=== PATIENT | male | born 1995 | race Caucasian/White ===

== ENCOUNTER 2020-07-27 18:16 | Emergency (ER) | payer OTHER, SELFPAY ==
[2020-07-27 18:39] VITALS: BP 132/87; PULSE 111; RESP 20; TEMP 37; O2SAT 98; BMI 50.1
[2020-07-27] MEDS: Fluorescein Sodium STRIP 1 STRIP EYE-LEFT (19:15)
[2020-07-27] MEDS: Tetracaine HCl/PF 0.5% Oph Sol 4 ML DROPS 3 DROP EYE-LEFT (19:15)
--- NOTE | 2020-07-27 20:05 | ED_ITS ---
HPI - Eye Problem General Chief complaint: Skin/Abscess/Foreign Body Stated complaint: eye pain Time Seen by Provider: 07/27/20 19:01 Source: patient Mode of arrival: ambulatory Limitations: no limitations History of Present Illness HPI Narrative: 24 yo male here with discoloration to left eye and over eyelid x several days. No injury or trauma. No pain, vision changes, discharge. Did have an episode of vomiting this morning after some alcohol intake and noticed more discoloration and bruising post episode. Related Data Allergies Allergy/AdvReac Type Severity Reaction Status Date / Time cephalexin [CEPHALEXIN] Allergy Unknown UNKNOWN Verified 07/27/20 19:35 Review of Systems Review of Systems: Yes all other systems are reviewed and are negative Constitutional: Constitutional: Reports no additional constitutional complaints, Denies body ache(s), Denies chills, Denies fever(s), Denies headache(s) and Denies weakness Eyes: Eyes: Reports no additional eye complaints, Denies blurry vision, Denies change in vision, Denies eye discharge, Denies irritation, Denies eye pain and Denies photophobia ENT: Reports system reviewed and no additional complaints, except as docum ented, Denies dizziness, Denies headache(s), Denies nasal congestion, Denies nasal discharge and Denies neck pain Cardiovascular: Cardiovascular: Reports no additional cardiovascular complaints, Denies chest pain, Denies leg edema and Denies dyspnea Respiratory: Respiratory: Reports no additional respiratory complaints, Denies cough and Denies dyspnea Gastrointestinal: Gastrointestinal: Reports no additional gastrointestinal complaints, Denies abdominal pain, Denies diarrhea, Denies nausea and Denies vomiting Genitourinary: Genitourinary: Denies urinary incontinence Musculoskeletal: Musculoskeletal: Reports no additional musculoskeletal complaints, Denies back pain, Denies arthralgias, Denies joint swelling, Denies neck pain, Denies numbness and Denies tingling Integumentary/Breasts: Skin/Breast: Reports system reviewed and no additional complaints, except as docu and Denies rash Neurologic: Reports system reviewed and no additional complaints, except as documented, Denies Abnormal speech present, Denies dizziness, Denies headache(s), Denies numbness, Denies tingling and Denies weakness PMF Past Medical History Attestation statement: The following information was validated with the patient. Source: old records reviewed and nursing notes reviewed Medical History Asthma Social History Social History Alcohol intake: current Alcohol intake frequency: a few times a week Alcohol type: hard liquor Smoking Status: Never smoker Use of substances other than those prescribed or required for medical reasons: No Advance Directives: No Advance Directives Information Provided: No Physical Exam Vital Signs: Vital Signs: Last Vital Signs Temp 98.6 F 07/27/20 18:39 Pulse 111 H 07/27/20 18:39 Resp 20 07/27/20 18:39 BP 132/87 07/27/20 18:39 Pulse Ox 98 07/27/20 18:39 Body Mass Index 50.1 Const: General: cooperative, healthy appearing, comfortable and no acute distress Orientation/consciousness: patient oriented x3 Limitations: no limitations HENMT: Head: Yes normal to inspection Ears: hearing grossly normal bilate rally General nose exam: Normal external nose present Face and sinus: Yes normal facial exam Mouth: Normal oral and palatal mucosa present Throat: Yes posterior oropharynx normal Eyes: Other: IOP right eye 12, IOP left eye 17 General: appearance normal, both eyes and all related structures Visual Barrett: normal visual barrett by confrontation Alignment and Position: alignment normal Periorbital: periorbital findings normal Eyelids: Yes eyelid abnormality (over the left upper eyelid there is bruising and mild swelling noted) Conjunctivae: conjunctival abnormal left subconjunctival hemorrhage (laterally) Sclerae: sclerae normal Corneas: corneas normal and fluorescein used (no FB or abrasion noted) Pupils: Equal, round and reactive pupils present EOM: EOMs intact bilaterally Direct Ophthalmoscopy: normal light reflex, no photophobia, no papilledema, fundi normal bilaterally, anterior chamber normal and No photophobia Eyes/upper lids images: 1. CAPO Neck: Neck: Yes normal visual inspection Chest: Chest palpation & inspection: normal inspection of the chest Resp: Effort & Inspection: normal respiratory effort Auscultation: clear to auscultation bilaterally Cardio: Rate: regular rate Rhythm: regular rhythm Peripheral pulses: Peripheral pulses 2+ throughout GI: Inspection: Yes normal to inspection Palpation (GI): Soft to palpation and nontender Auscultation: normal bowel sounds Back/Spine/Pelvis: Thoracic/Lumbar Spine: thoracic and lumbar spine normal to inspection Skin: General skin exam: no rashes or lesions noted Neuro: General: patient oriented x3, no focal motor deficits and normal sensation to monofilament Cranial nerves: Yes Equal, round and reactive pupils present Cognition (Neuro): normal cognition Speech: No Abnormal sp eech present Gait exam (Neuro): Normal gait present Motor exam (neuro): 5/5 motor strength present throughout Extrem: General: Yes normal to inspection Course Course Course Narrative: Left CAPO and mild hematoma noted over left upper eyelidx 2-3 days however worsened after vomiting episode last night per patient. Vision at baseline per patient. NO other complaints from patient with exception of how it appears physically. Normal IOP. Normal BP. No h/o bleeding or clotting disorders. Likely from vomiting. Will have patient f/u outpatient with PCP and ophthalmology. Reviewed worrisome signs/symptoms with patient and when to return to ED. Comfortable with discharge home. Discharge Plan Discharge Clinical Impression: CAPO (subconjunctival hemorrhage) Qualifiers: Laterality: left Qualified Code(s): H11.32 - Conjunctival hemorrhage, left eye Patient Disposition: Home, Self-Care Instructions: Subconjunctival Hemorrhage (ED) Additional Instructions: cold compresses eye exam normal today with normal eye pressures Referrals: Diego Matta [Physician] - 2 days Interventions: ED Discharge Assessment Last Done: 07/27/20 19:33 Discharge Date/Time: 07/27/20 19:33
== END 2020-07-27 19:33 | disposition home or self-care (01) ==
PROVIDERS: Emergency Provider Internal Medicine
DX: H11.32 Conjunctival hemorrhage, left eye (principal); J45.909 Unspecified asthma, uncomplicated
CPT/HCPCS: 99283; 99284

== ENCOUNTER 2020-10-03 20:00 | Emergency (ER) | payer OTHER, SELFPAY ==
--- NOTE | ~2020-10-03 | XR_ITS ---
EXAMINATION: RIGHT HAND AND WRIST X-RAY CLINICAL INFORMATION: Pain COMPARISON: None TECHNIQUE: 3 views of the right hand and wrist FINDINGS: Bone alignment is normal. No fracture or dislocation is seen. Joint spaces are normal. Soft tissues are normal. XR/XR hand wrist RT IMPRESSION: Normal exam.
[2020-10-03 20:09] VITALS: BP 155/108; PULSE 99; RESP 20; TEMP 36.6; O2SAT 95; BMI 54.6
--- NOTE | 2020-10-03 21:12 | ED_ITS ---
HPI - Extremity Problem General Chief complaint: Extremity Injury, Upper Stated complaint: Wrist pain Time Seen by Provider: 10/03/20 21:07 Source: patient Mode of arrival: ambulatory Limitations: no limitations History of Present Illness HPI Narrative: Patient comes emergency room complaining of right wrist. Patient states he was trying to do handstands in the swimming pool, patient states that he sprained his wrist while trying to stand back up again. Patient has been able to move his hand, it does hurt but has full range of motion. Patient states he has not taking any medication for pain MD Complaint: extremity pain Related Data Home Medications Medication Instructions Recorded Confirmed albuterol sulfate 3 ml INHALATION Q6H PRN 10/03/20 10/03/20 albuterol sulfate [ProAir HFA] 2 puff PO Q4H PRN 10/03/20 10/03/20 Allergies Allergy/AdvReac Type Severity Reaction Status Date / Time cephalexin [CEPHALEXIN] Allergy Unknown UNKNOWN Verified 10/03/20 20:16 Review of Systems Review of Systems: Constitutional : No Weight loss, No Fever, No Chills, No Night Sweats, No Fatigue, No Malaise ENT/Mouth : No Hearing loss, No Ear Pain, No Nasal Congestion, No Sinus Pain, No Hoarseness, No sore throat, No Rhinorrhea, No Swallowing Difficulty Eyes: No Eye Pain, No Swelling, No Redness, No Foreign Body, No Discharge, No Vision Changes Cardiovascular : No Chest Pain, No SOB, No Dyspnea on Exertion, No Orthopnea, No Edema, No Palpitations Respiratory : No Cough, No Sputum, No Wheezing, No Smoke Exposure, No Dyspnea Gastrointestinal : No Nausea, No Vomiting, No Diarrhea, No Constipation, No a bdominal Pain, No Hematochezia, No Melena Genitourinary : no irregular bleeding, No Dysuria, No Urinary Frequency, No Hematuria, No Urinary Incontinence, No Urgency, No Flank Pain, No Urinary Flow Changes, No Hesitancy Musculoskeletal : Right wrist pain, No Myalgias, No Joint Swelling Skin : No Skin Lesions, No rash Neuro : No Weakness, No Numbness, No Paresthesias, No Loss of Consciousness, No Dizziness, No Headache Psych : No Anxiety/Panic, No Depression, No SI/HI/AH/VH, No Social Issues, Heme/Lymph: No Bruising, No Bleeding,No Lymphadenopathy Endocrine : No Polyuria, No Polydipsia, No Temperature Intolerance [facility] Past Medical History Medical History Asthma Obesity Social History Social History Alcohol intake: current Alcohol intake frequency: a few times a week Alcohol type: hard liquor Advance Directives: No Advance Directives Information Provided: No Physical Exam Vital Signs: Vital Signs: Last Vital Signs Temp 97.9 F 10/03/20 20:09 Pulse 99 10/03/20 20:09 Resp 20 10/03/20 20:09 BP 155/108 H 10/03/20 20:09 Pulse Ox 95 10/03/20 20:09 Body Mass Index 54.6 Appearance: Alert. Oriented X3. No acute distress. Eyes: Pupils equal, round and reactive to light. ENT: Pharynx normal. Neck: Normal inspection. Neck supple. No lymph nodes noted. No crepitus CVS: Normal heart rate and rhythm. Pulses normal. Normal S1 and S2 Respiratory: No respiratory distress. Breath sounds normal. No Wheezing. No rales Abdomen: Soft and nontender. No rigidity. No distention. good BS x4 Skin: Skin warm and dry. Normal skin color. Normal skin turgor. Extremities: No lower extremity edema. Patient is able to flex and extend all fingers, able to flex and extend wrist and elbow, mild pain to palpation over the dorsal aspect of the radial head Neuro: Oriented X 3. No motor deficit. No sensory deficit. Moving all extermities. No slurred speech. Course Course Course Narrative: I discussed the x-ray with the patient, patient has no fracture, only a wrist sprain. Patient was offered the 1st dose of pain medication, ibuprofen MDM - Extremity (Nontraumatic) Imaging Data Right wrist x-ray: Radiologist's impression: Appearance: Alert. Oriented X3. No acute distress. Eyes: Pupils equal, round and reactive to light. ENT: Pharynx normal. Neck: Normal inspection. Neck supple. No lymph nodes noted. No crepitus CVS: Normal heart rate and rhythm. Pulses normal. Normal S1 and S2 Respiratory: No respiratory distress. Breath sounds normal. No Wheezing. No rales Abdomen: Soft and nontender. No rigidity. No distention. good BS x4 Skin: Skin warm and dry. Normal skin color. Normal skin turgor. Extremities: No lower extremity edema. No lower extremity edema. No Lace rations. No Rash Neuro: Oriented X 3. No motor deficit. No sensory deficit. Moving all extermities. No slurred speech. Discharge Plan Discharge Clinical Impression: Sprain and strain of wrist Patient Disposition: Home, Self-Care Instructions: Wrist Sprain (ED) Prescriptions: No Action albuterol sulfate 2.5 mg /3 mL (0.083 %) solution for nebulization 3 ml inhalation Q6H PRN (Reason: wheezing) RF: 0 albuterol sulfate [ProAir HFA] 90 mcg/actuation HFA aerosol inhaler 2 puff PO Q4H PRN (Reason: wheezing) RF: 0
[2020-10-03] MEDS: Ibuprofen 600 MG TABLET PO (21:51)
== END 2020-10-03 21:37 | disposition home or self-care (01) ==
PROVIDERS: Emergency Provider Emergency Medicine
DX: S63.501A Unspecified sprain of right wrist, initial encounter (principal); S66.911A Strain of unspecified muscle, fascia and tendon at wrist and hand level, right hand, initial encounter; X50.1XXA Overexertion from prolonged static or awkward postures, initial encounter; Y93.11 Activity, swimming; Y92.016 Swimming-pool in single-family (private) house or garden as the place of occurrence of the external cause; Y99.8 Other external cause status
CPT/HCPCS: 73110; 73130; 99283; 99284

== ENCOUNTER 2021-06-17 13:23 | Emergency (ER) | payer OTHER, SELFPAY ==
[2021-06-17 13:40] VITALS: BP 162/102; PULSE 100; RESP 19; TEMP 36.6; O2SAT 99; BMI 53.1
[2021-06-17] MEDS: Lidocaine HCl 1 % MPF 5 ML VIAL SUBCUT ×2 (15:23)
--- NOTE | 2021-06-17 16:44 | ED.EAR ---
HPI - Ear Problem General Chief complaint: Ear Problems Stated complaint: EAR LOBE ISSUE Time Seen by Provider: 06/17/21 15:07 History of Present Illness HPI Narrative: Complains of right ear ear ring stuck Related Data Home Medications Medication Instructions Recorded Confirmed albuterol sulfate 3 ml INHALATION Q6H PRN 10/03/20 10/03/20 albuterol sulfate 90 mcg/actuation 2 puff PO Q4H PRN 10/03/20 10/03/20 aerosol inhaler (ProAir HFA) Allergies Allergy/AdvReac Type Severity Reaction Status Date / Time cephalexin [CEPHALEXIN] Allergy Unknown UNKNOWN Verified 10/03/20 20:16 Review of Systems Review of Systems: Positive for ring stuck and right earlobe Negatives are no fever no chills no loss of hearing no rash no other complaint Yes all other systems are reviewed and are negative [facility] Past Medical History Source: nursing notes reviewed Medical History Asthma Obesity Social History Social History Alcohol intake: current Alcohol intake frequency: a few times a week Alcohol type: hard liquor Advance Directives: No Advance Directives Information Provided: Yes Physical Exam Vital Signs: Vital Signs: Last Vital Signs Temp 98 F 06/17/21 13:40 Pulse 100 06/17/21 13:40 Resp 19 06/17/21 13:40 BP 162/102 H 06/17/21 13:40 Pulse Ox 99 06/17/21 13:40 BMI result Body Mass Index 53.1 General appearance is no acute distress The head is normocephalic atraumatic The ear exam the right ear lobe headache hearing that was stuck in the ear lobe Neck is supple Respiratory no distress Extremities full range of motion x4 Course Course Course Narrative: The right ear lobe was cleansed with Betadine It was numbed with 4 cc of 1% lidocaine Three small incisions were made to create a flap and the ear ring was eventually pushed through and removed The incisions were closed with 3 x 5.0 Vicryl repeat sutures that will not need to be removed Discharge Plan Discharge Clinical Impression: Foreign body (FB) in soft tissue Patient Disposition: Home, Self-Care Additional Instructions: The hearing was removed and I put some absorbable stitches, 3, in back of your here patient fall out on their own Return any time for redness swelling any sign of infection Prescriptions: No Action albuterol sulfate 2.5 mg /3 mL (0.083 %) solution for nebulization 3 ml inhalation Q6H PRN (Reason: wheezing) 0RF albuterol sulfate [ProAir HFA] 90 mcg/actuation HFA aerosol inhaler 2 puff PO Q4H PRN (Reason: wheezing) 0RF Interventions: ED Discharge Assessment Last Done: 06/17/21 17:07 Discharge Date/Time: 06/17/21 17:08
== END 2021-06-17 17:08 | disposition home or self-care (01) ==
PROVIDERS: Emergency Provider Emergency Medicine
DX: M79.5 Residual foreign body in soft tissue (principal)
CPT/HCPCS: 10120; 99283; 99284

== ENCOUNTER 2021-08-02 01:51 | Emergency (ER) | payer OTHER, SELFPAY ==
[2021-08-02 01:57] VITALS: BP 180/111; PULSE 112; RESP 20; TEMP 36.8; O2SAT 96; BMI 53.1
--- NOTE | 2021-08-02 02:53 | ED.EAR ---
HPI - Ear Problem General Chief complaint: Ear Problems Stated complaint: earring left in R ear after removal? Time Seen by Provider: 08/02/21 02:24 Source: patient Mode of arrival: ambulatory Limitations: no limitations History of Present Illness HPI Narrative: 25-year-old male who presents emergency department for evaluation of imbedded earring back in his right earlobe. States that 1 month ago he had an hearing which was imbedded and came to the emergency department have removed. He states that initially the provider started in the back of the ear but could not find the hearing and was able to pull the hearing out from front. The patient states that he has had no difficulty with his ear lobe. He states that today however he felt his earlobe and he felt something hard in the ear low. His mother looked at the back of his ear and noted a gold piece of metal and the patient was concerned that the earring back was still imbedded in his ear low therefore came to emergency department for evaluation. He denied any pain, swelling or drainage of pus from his ear lobe. Related Data Home Medications Medication Instructions Recorded Confirmed albuterol sulfate 3 ml INHALATION Q6H PRN 10/03/20 10/03/20 albuterol sulfate 90 mcg/actuation 2 puff PO Q4H PRN 10/03/20 10/03/20 aerosol inhaler (ProAir HFA) Allergies Allergy/AdvReac Type Severity Reaction Status Date / Time cephalexin [CEPHALEXIN] Allergy Unknown UNKNOWN Verified 08/02/21 02:00 Review of Systems Review of Systems: Yes all other systems are reviewed and are negative [facility] Past Medical History Medical History Asthma Obesity Social History Social History Alcohol intake: current Alcohol intake frequency: a few times a week Alcohol type: hard liquor Advance Directives: No Physical Exam Vital Signs: Vital Signs: Last Vital Signs Temp 98.2 F 08/02/21 01:57 Pulse 112 H 08/02/21 01:57 Resp 20 08/02/21 01:57 BP 180/111 H 08/02/21 01:57 Pulse Ox 96 08/02/21 01:57 BMI result Body Mass Index 53.1 Const: Other: Awake, alert, male patient, very pleasant and cooperative, does not appear to be in any distress HEENT: Other: The patient has no tenderness, swelling or erythema of the right ear lobe, and looking at the posterior aspect a very small gold metal foreign body can be visualized. Procedures Procedure Narrative Procedure Narrative: Right ear lobe foreign body (earring backing) removal: Patient gave me informed verbal consent to proceed. The patient's right earlobe was prepped with Betadine and then the posterior aspect was anesthetized with 1% lidocaine. Using a 11. Blade scalpel an incision was made over the area the metal foreign body. Using hemostats was able to grasp the foreign body and remove it. The foreign body is a very small urine backing which appears to be intact. The patient tolerated the procedure well. Discharge Plan Discharge Clinical Impression: Foreign body (FB) in soft tissue Patient Disposition: Home, Self-Care Instructions: Soft Tissue Foreign Body (ED) Additional Instructions: I was able to remove the earring backing from the back of your ear lobe. At this time, there does not appear to be any infection. Watch for signs of infection which would include increased swelling, increased redness, increased warmth, drainage of pus, red streaks going away from the back of your your. Follow-up with your doctor in 2 days. Please return to the emergency department if your symptoms get worse or if you develop any symptoms that are concerning to you. Prescriptions: No Action albuterol sulfate 2.5 mg /3 mL (0.083 %) solution for nebulization 3 ml inhalation Q6H PRN (Reason: wheezing) 0RF albuterol sulfate [ProAir HFA] 90 mcg/actuation HFA aerosol inhaler 2 puff PO Q4H PRN (Reason: wheezing) 0RF
[2021-08-02] MEDS: Lidocaine HCl 1 % MPF 5 ML VIAL INFILTRATI ×2 (02:56)
== END 2021-08-02 03:07 | disposition home or self-care (01) ==
PROVIDERS: Emergency Provider Emergency Medicine Emergency Medical Services
DX: T16.1XXA Foreign body in right ear, initial encounter (principal); H92.01 Otalgia, right ear; X58.XXXA Exposure to other specified factors, initial encounter; Y93.9 Activity, unspecified; Y92.9 Unspecified place or not applicable; Y99.9 Unspecified external cause status; Z79.899 Other long term (current) drug therapy
CPT/HCPCS: 10120; 99284

== ENCOUNTER 2021-09-18 20:57 | Emergency (ER) | payer OTHER, SELFPAY ==
[2021-09-18 22:28] VITALS: BP 178/132; PULSE 113; RESP 22; TEMP 37.8; O2SAT 96; BMI 56.9
[2021-09-18] MEDS: Ibuprofen 600 MG TABLET PO (22:41)
[2021-09-18 23:09] LABS: COVID-19 Test Positive (Negative); IDNOW Serial# 16C4AD1C
[2021-09-18 23:10] LABS: Influenza A Negative (Negative); Influenza B2 Negative (Negative)
[2021-09-19 00:16] VITALS: BP 163/94; PULSE 101; RESP 16
--- NOTE | 2021-09-19 01:12 | ED_ITS ---
HPI - URI/Sore Throat General Chief Complaint: Upper Respiratory Symptoms Stated Complaint: flu like Time Seen by Provider: 09/18/21 23:49 Source: patient Mode of arrival: ambulatory Limitations: no limitations History of Present Illness HPI Narrative: Patient obese with history of asthma having cold symptoms for last 3 days low- grade temperature 99.3 degrees at home feels slight short of breath mostly dry cough no chest pain Related Data Home Medications Medication Instructions Recorded Confirmed albuterol sulfate 3 ml INHALATION Q6H PRN 10/03/20 10/03/20 albuterol sulfate 90 mcg/actuation 2 puff PO Q4H PRN 10/03/20 10/03/20 aerosol inhaler (ProAir HFA) Previous Rx's Medication Instructions Recorded albuterol sulfate 90 mcg/actuation 2 puff INHALATION Q4-6H PRN #8.5 g 09/19/21 aerosol inhaler (ProAir HFA) benzonatate 200 mg capsule 200 mg PO TID PRN #30 cap 09/19/21 dexamethasone 6 mg tablet 6 mg PO DAILY #6 tab 09/19/21 (Decadron) lisinopril 20 1 tab PO DAILY #30 tab 09/19/21 mg-hydrochlorothiazide 25 mg tablet Allergies Allergy/AdvReac Type Severity Reaction Status Date / Time cephalexin [CEPHALEXIN] Allergy Unknown UNKNOWN Verified 08/02/21 02:00 Review of Systems Review of Systems: Yes all other systems are reviewed and are negative [facility] Past Medical History Medical History Asthma Obesity Social History Social History Alcohol intake: current Alcohol intake frequency: a few times a week Alcohol type: hard liquor Advance Directives: No Advance Directives Information Provided: No Physical Exam Vital Signs: Vital Signs: Last Vital Signs Temp 100.0 F 09/18/21 22:28 Pulse 101 H 09/19/21 00:16 Resp 16 09/19/21 00:16 BP 210/121 H 09/19/21 01:18 Pulse Ox 96 09/18/21 22:28 BMI result Body Mass Index 56.9 Appearance: Alert. Oriented X3. No acute distress. ENT: Pharynx normal. Oral Mucosa moist Neck: Normal inspection. Neck supple. CVS: Normal heart rate and rhythm. Pulses normal. Respiratory: No respiratory distress. Equal air entry bilateral, no wheezing/rales/rhonchi Skin: Skin warm and dry. Normal skin color. Normal skin turgor. Extremities: No lower extremity edema. Neuro: Oriented X 3. MDM - URI/Sore Throat MDM Narrative Medical decision making narrative: Patient with COVID-19 without significant hypoxia noticed of high blood pressure which is going on for last 2 years for records noted any blood pressure medication on arrival patient's blood pressure was 178/132 patient does not any PCP and is not taking any blood pressure medication will start him on lisinopril with hydrochlorothiazide and given dose of lisinopril and clonidine in the ER. Lab Data Attestation: I reviewed the patient's lab results. Labs: Lab Results 09/18/21 09/18/21 Range/Units 22:42 22:42 COVID-19 (BONI) Positive A (Negative) COVID-19 Clin Com See Note Influenza Type A (KRISTYN) Negative (Negative) Influenza Type B (KRISTYN) Negative (Negative) Influenza A & B Note See Note Discharge Plan Discharge Clinical Impression: COVID-19, Hypertension Patient Disposition: Home, Self-Care Instructions: Chronic Hypertension (ED), COVID-19 (Coronavirus Disease 2019) (ED) Additional Instructions: Social distance Weight reduction as advised Check blood pressure daily Your blood pressure showed be less than 130/80 Follow-up with PCP Prescriptions: New benzonatate 200 mg capsule 200 mg PO TID PRN (Reason: cough) Qty: 30 0RF dexamethasone [Decadron] 6 mg tablet 6 mg PO DAILY Qty: 6 0RF albuterol sulfate [ProAir HFA] 90 mcg/actuation HFA aerosol inhaler 2 puff inhalation Q4-6H PRN (Reason: shortness of breath or wheezing) Qty: 8.5 0RF lisinopril-hydrochlorothiazide 20-25 mg tablet 1 tab PO DAILY Qty: 30 3RF No Action albuterol sulfate 2.5 mg /3 mL (0.083 %) solution for nebulization 3 ml inhalation Q6H PRN (Reason: wheezing) 0RF albuterol sulfate [ProAir HFA] 90 mcg/actuation HFA aerosol inhaler 2 puff PO Q4H PRN (Reason: wheezing) 0RF Referrals: Anne Whitaker MD [Physician] - 1 week
[2021-09-19] MEDS: dexAMETHasone 6 MG TABLET PO (01:13)
[2021-09-19] MEDS: lisinopriL 20 MG TABLET PO (01:13)
[2021-09-19] MEDS: Benzonatate 100 MG CAPSULE 200 MG PO (01:13)
[2021-09-19] MEDS: cloNIDine HCL 0.2 MG TABLET PO (01:14)
--- NOTE | 2021-09-19 01:16 | PC.NURSE ---
unable to scan meds due to in-room and portable computers not working for this RN. Only able to log-into 1 particular computer at this time. Unknown reason for technological issue. Patient's BP is elevated, despite checking BP at multiple sights. Elder denies complaints. Upon reviewing medical record, chronically elevated BP noted. Pt stated my insurance doesn't work around here, so I can't get into a primary care office right now .
[2021-09-19 01:18] VITALS: BP 210/121
[2021-09-19 02:09] VITALS: BP 181/116
== END 2021-09-19 02:17 | disposition home or self-care (01) ==
PROVIDERS: Emergency Provider Internal Medicine
DX: U07.1 COVID-19 (principal); I10 Essential (primary) hypertension; J45.909 Unspecified asthma, uncomplicated
CPT/HCPCS: 87502; 87635; 99282; 99283; J8540

== ENCOUNTER 2023-09-05 14:48 | Emergency (ER) | payer OTHER, SELFPAY ==
[2023-09-05 14:58] VITALS: BP 179/108; PULSE 111; RESP 18; TEMP 36.2; O2SAT 95; BMI 53.9
--- NOTE | 2023-09-05 14:58 | ED.GENADULT ---
HPI - General Adult General Chief complaint: Nausea/Vomiting/Diarrhea Stated complaint: Vomiting Related Data Home Medications ?Medication ?Instructions ?Recorded ?Confirmed albuterol sulfate 2.5 mg/3 mL 3 ml inhalation Q6H PRN wheezing 10/03/20 10/03/20 (0.083 %) solution for nebulization albuterol sulfate 90 mcg/actuation 2 puff PO Q4H PRN wheezing 10/03/20 10/03/20 aerosol inhaler (ProAir HFA) Previous Rx's ?Medication ?Instructions ?Recorded albuterol sulfate 90 mcg/actuation 2 puff inhalation Q4-6H PRN 09/19/21 aerosol inhaler (ProAir HFA) shortness of breath or wheezing #8.5 grams benzonatate 200 mg capsule 200 mg PO TID PRN cough #30 caps 09/19/21 dexamethasone 6 mg tablet 6 mg PO DAILY #6 tabs 09/19/21 (Decadron) lisinopril 20 1 tab PO DAILY #30 tabs 09/19/21 mg-hydrochlorothiazide 25 mg tablet Allergies Allergy/AdvReac Type Severity Reaction Status Date / Time cephalexin [CEPHALEXIN] Allergy Unknown UNKNOWN Verified 09/05/23 15:01 [facility] Past Medical History Medical History Asthma Obesity Social History Social History Alcohol intake: current Alcohol intake frequency: a few times a week Alcohol type: hard liquor Advance Directives: No Advance Directives Information Provided: No Do you have a plan to hurt others: No Plan Physical Exam ED Vital Signs: BMI result Body Mass Index 53.9 Course Course Course Narrative: This is an RME: Additional HPI, ROS, PE not included below will be deferred to primary provider. 27 yo m presents with vomiting since this morning. States it looked blood tinged. Denies diarrhea, fevers, chills. Denies sick contacts. Medical Decision Making Lab Data 09/05/23 16:32 09/05/23 16:32 Labs: Lab Results 09/05/23 Range/Units 16:32 WBC 10.4 (4.8-10.8) X10*3/uL RBC 5.93 H (4.60-5.80) X10*6/uL Hgb 16.2 (14.0-18.0) g/dl Hct 46.8 (42.0-52.0) % MCV 78.9 L (80.0-98.0) fL MCH 27.3 (27.0-33.0) pg MCHC 34.6 (31.0-36.0) g/dl RDW 13.5 (11.0-16.0) % Plt Count 350 (160-400) X10*3/uL MPV 9.9 (9.4-12.4) fL Immature Gran % (Auto) 0.5 H (0.0-0.4) % Neut % (Auto) 73.6 H (45-73) % Lymph % (Auto) 17.6 L (20-40) % [place] % (Auto) 5.3 (2-11) % Eos % (Auto) 2.1 (0-4) % Baso % (Auto) 0.9 (0-2) % Lymph # (Auto) 1.8 (1.2-4.9) X10*3/uL [place] # (Auto) 0.6 (0.1-1.2) X10*3/uL Eos # (Auto) 0.2 (0.0-0.4) X10*3/uL Baso # (Auto) 0.1 (0.0-0.2) X10*3/uL Abs Immat Gran (auto) 0.05 H (0.00-0.03) X10*3/uL Absolute Neuts (auto) 7.6 (2.0-8.3) x10*3/uL Absolute Nucleated RBC 0.000 (0.0-0.012) X10*3/uL Nucleated RBC % (auto) 0.0 (0.0-0.2) /100WBC Sodium 142 (135-145) mmol/L Potassium 3.1 L (3.3-5.1) mmol/L Chloride 99 (96-108) mmol/L Carbon Dioxide 29 (22-29) mmol/L Anion Gap 17 (12-20) BUN 13 (9-16) mg/dL Creatinine 1.33 (0.5-1.4) mg/dL Estim Creat Clear Calc 126.5 Estimated GFR > 60 Random Glucose 93 (60-115) mg/dL Calcium 9.2 (8.4-10.2) mg/dL Magnesium 2.0 (1.6-2.6) mg/dL Total Bilirubin 0.6 (0.0-1.0) mg/dL AST 46 H (5-37) U/L ALT 81 H (0-40) U/L Alkaline Phosphatase 117 (39-117) U/L Total Protein 8.6 H (6.5-8.0) g/dL Albumin 4.3 (3.5-5.0) g/dL Lipase 20 (8-78) U/L Influenza Type A (PCR) NEGATIVE (Negative) Influenza Type B (PCR) NEGATIVE (Negative) RSV RNA Qual (PCR) NEGATIVE (Negative) SARS-CoV-2 RNA (RT-PCR) NEGATIVE (Negative) Discharge Plan Discharge Clinical Impression: Eloped from emergency department Patient Disposition: Left W/O Completing Treatment Prescriptions: No Action albuterol sulfate 2.5 mg /3 mL (0.083 %) solution for nebulization 3 ml inhalation Q6H PRN (Reason: wheezing) albuterol sulfate [ProAir HFA] 90 mcg/actuation HFA aerosol inhaler 2 puff PO Q4H PRN (Reason: wheezing) benzonatate 200 mg capsule 200 mg PO TID PRN (Reason: cough) Qty: 30 0RF dexamethasone [Decadron] 6 mg tablet 6 mg PO DAILY Qty: 6 0RF albuterol sulfate [ProAir HFA] 90 mcg/actuation HFA aerosol inhaler 2 puff inhalation Q4-6H PRN (Reason: shortness of breath or wheezing) Qty: 8.5 0RF lisinopril-hydrochlorothiazide 20-25 mg tablet 1 tab PO DAILY Qty: 30 3RF Interventions: LWBS Worksheet Last Done: 09/05/23 20:20 Discharge Date/Time: 09/05/23 20:00
[2023-09-05 16:36] LABS: MANUAL DIFF FLAG NO
[2023-09-05 16:40] LABS: Basophils Absolute Auto 0.1 X10*3/uL (0.0-0.2); Basophils Percent Auto 0.9 % (0-2); Eosinophils Absolute Auto 0.2 X10*3/uL (0.0-0.4); Eosinophils Percent Auto 2.1 % (0-4); Hematocrit 46.8 % (42.0-52.0); Hemoglobin 16.2 g/dl (14.0-18.0); Imm Gran Abs Auto 0.05 X10*3/uL (0.00-0.03); Imm Gran Pct Auto 0.5 % (0.0-0.4); Lymphocytes Absolute Auto 1.8 X10*3/uL (1.2-4.9); Lymphocytes Percent Auto 17.6 % (20-40); Mean Corpuscular HGB Conc 34.6 g/dl (31.0-36.0); Mean Corpuscular Hemoglobin 27.3 pg (27.0-33.0); Mean Corpuscular Volume 78.9 fL (80.0-98.0); Mean Platelet Volume 9.9 fL (9.4-12.4); Monocytes Absolute Auto 0.6 X10*3/uL (0.1-1.2); Monocytes Percent Auto 5.3 % (2-11); Neutrophils Absolute Auto 7.6 x10*3/uL (2.0-8.3); Neutrophils Percent Auto 73.6 % (45-73); Platelet Count 350 X10*3/uL (160-400); Red Blood Count 5.93 X10*6/uL (4.60-5.80); Red Cell Distribution Width 13.5 % (11.0-16.0); White Blood Count 10.4 X10*3/uL (4.8-10.8)
[2023-09-05 17:02] LABS: Alanine Aminotransferase 81 U/L (0-40); Albumin Level 4.3 g/dL (3.5-5.0); Alkaline Phosphatase 117 U/L (39-117); Anion Gap 17 (12-20); Aspartate Amino Transferase 46 U/L (5-37); Bilirubin Total 0.6 mg/dL (0.0-1.0); Blood Urea Nitrogen 13 mg/dL (9-16); Calcium 9.2 mg/dL (8.4-10.2); Carbon Dioxide 29 mmol/L (22-29); Chloride 99 mmol/L (96-108); Creatinine Clr Calc Pharmacy 126.5; Estimated Glomerular Filt Rate > 60; Glucose Random 93 mg/dL (60-115); Lipase 20 U/L (8-78); Potassium 3.1 mmol/L (3.3-5.1); Sodium 142 mmol/L (135-145); Total Protein 8.6 g/dL (6.5-8.0)
[2023-09-05 17:14] LABS: Influenza A PCR NEGATIVE (Negative); Influenza B PCR NEGATIVE (Negative); Resp Syncy Virus RNA Qual PCR NEGATIVE (Negative); SARS COV2 PCR INHOUSE NEGATIVE (Negative)
== END 2023-09-05 20:00 | disposition left against medical advice (07) ==
PROVIDERS: Physician Assistant; Emergency Provider Emergency Medicine
DX: R11.2 Nausea with vomiting, unspecified (principal); Z11.52 Encounter for screening for COVID-19; Z20.822 Contact with and (suspected) exposure to COVID-19; Z79.899 Other long term (current) drug therapy
CPT/HCPCS: 0241U; 80053; 83690; 83735; 85025; 99281; 99283